=== PATIENT | male | born 1965 | race Hispanic/Latino ===

== ENCOUNTER 2019-10-18 05:31 | Emergency (ER) | payer BC ==
[2019-10-18] MEDS ORDERED: ORPHENADRINE CITRATE 30 MG/ML ML ONE (06:44)
[2019-10-18] MEDS ORDERED: PREDNISONE 20 MG TABLET ONE (06:44)
[2019-10-18 06:48] LABS: BASOPHILS % (AUTO) 0.4 % (0.0-5.0); EOSINOPHILS % (AUTO) 0.7 % (0.0-8.0); HEMATOCRIT 43.4 % (42-54); MEAN CORPUSCULAR HEMOGLOBIN 28.2 pg (27.0-33.0); MEAN CORPUSCULAR HGB CONC 33.6 g/dL (32.0-36.0); MEAN CORPUSCULAR VOLUME 83.9 fL (79-99); NEUTROPHILS % (AUTO) 64.6 % (40.0-77.0); PLATELET COUNT (AUTO) 156 K/uL (130-400); RED BLOOD CELL COUNT(AUTO) 5.17 MIL/uL (4.50-6.20); RED CELL DISTRIBUTION WIDTH 12.1 % (11.0-15.5); WHITE BLOOD COUNT (AUTO) 6.9 K/uL (4.8-10.8)
[2019-10-18 06:57] LABS: CREATININE 1.1 mg/dL (0.5-1.5)
[2019-10-18 07:03] LABS: ALBUMIN 3.5 g/dL (3.5-5.0); BILIRUBIN,TOTAL 0.3 mg/dL (0.2-1.0); MAGNESIUM 1.8 mg/dL (1.80-2.40); TOTAL PROTEIN, SERUM 7.6 g/dL (6.0-8.3)
== END 2019-10-18 08:15 | disposition home or self-care (01) ==
LOC: EDH 05:31
DX: R20.2 Paresthesia of skin (principal); R73.9 Hyperglycemia, unspecified; Z79.899 Other long term (current) drug therapy
CPT/HCPCS: 29125; 36415; 80053; 83735; 84484; 85025; 93005; 96372; 99284; J2360